=== PATIENT | male | born 1965 | race Two or more races ===

== ENCOUNTER 2016-08-23 18:05 | Emergency (ER) | payer SELFPAY ==
--- NOTE | 2016-08-23 18:28 | EDPHY ---
H & P Time Seen by Provider: 08/23/16 18:24 HPI/ROS: CHIEF COMPLAINT: Chest pain, vomiting. HISTORY OF PRESENT ILLNESS: This is a 50-year-old male with a history of diabetes, MD, and pacemaker presenting via EMS for 6/10 chest pain, abdominal pain, and vomiting. The chest pain began 3 days ago and was followed by the abdominal pain and vomiting. The chest pain radiates from his jaw to his lower chest and is worsened with exertion. He has associated rapid palpitations. He reports vomiting a black substance and gets dizzy when he moves. He has been unable to eat or drink since onset. He has also been unable to take his Lisinopril, Toprol, or insulin medications. In the ambulance his blood glucose was measured in the 500s. He admits diarrhea and palpitations yesterday but not today. He reports no history of DKA. No fever, abdominal pain, chills, shortness of breath, palpitations, urinary complaints, headache, lightheadedness. Per EMS he was found at the [facility] seeking a doctor who could refill his medications and security there alerted EMS. History obtained via [place] computer language coder at bedside. EMS administered .4mg Nitroglycerin and 324mg PO aspirin en route. REVIEW OF SYSTEMS: Aside from elements discussed in the HPI, a comprehensive 10-point review of systems was reviewed and is negative. PAST MEDICAL HISTORY: Diabetes, neuropathy, primary hypertension, hypothyroidism , chronic viral hepatitis, heart attack with Pacemaker Placement. SOCIAL HISTORY: Recently moved to [place]. VITAL SIGNS: Reviewed by me GENERAL: Well-developed, well-nourished, resting comfortably in no respiratory distress. HEENT: Atraumatic. Eyes: Mild icterus, no injection. Mouth: No ketones on the breath. Moist mucous membranes. No erythema or lesions. Neck: supple with no adenopathy. LUNGS: Clear to auscultation bilaterally, no wheezes, rhonchi or rales. CARDIAC: Pacemaker. Regular rate and rhythm, no rubs, murmurs or gallops. ABDOMEN: Soft, nontender, nondistended, bowel sounds normal. BACK: No CVA tenderness. EXTREMITIES: No trauma. No edema. Range of motion is normal throughout. NEURO: Alert and oriented, grossly nonfocal. SKIN: Warm and dry, no rash. PSYCHIATRIC: Normal mentation, no agitation. Portions of this note were transcribed by a electromedical equipment repairer. I personally performed a history, physical exam, medical decision making, and confirmed accuracy of information the transcribed note. Source: Patient Exam Limitations: No limitations - Medical/Surgical History Hx Asthma: No Hx Chronic Respiratory Disease: No Hx Diabetes: Yes Hx Cardiac Disease: Yes Hx Renal Disease: No Hx Cirrhosis: No Hx Alcoholism: No Hx Splenectomy or Spleen Trauma: No Other PMH: DMI, MD, Pacemaker - Social History Smoking Status: Former smoker Constitutional: Initial Vital Signs Temperature (C) 36.5 C 08/23/16 18:27 Heart Rate 92 08/23/16 18:27 Respiratory Rate 20 08/23/16 18:27 Blood Pressure 115/70 08/23/16 18: O2 Sat (%) 98 08/23/16 18:27 O2 Delivery Mode Nasal Cannula O2 (L/minute) 3 Allergies/Adverse Reactions: No Known Allergies Allergy (Unverified 03/28/16 03:55) Home Medications: Medication Instructions Recorded Aspirin 03/28/16 Gabapentin [Neurontin] 600 mg PO TID #30 tablet 03/28/16 Insulin 03/28/16 Metoprolol Tartrate 03/28/16 Medical Decision Making - Diagnostics EKG Interpretation: 12-LEAD EKG: Please see the full report in [employer] [facility]. My interpretation: Sinus rhythm rate 91, peaked T waves. No acute ischemic changes Imaging: X-ray of the chest was obtained. I viewed the images myself on the PACS system. The radiologist interpretation is 1. Pacemaker, without pneumothorax. 2. No acute pulmonary disease. I discussed the x-ray findings with the patient. ED Course/Re-evaluation: An IV was established and labs ordered. Chest x-ray and EKG ordered. Patient hyperglycemic at 707, hyponatremic at 120, hyperkalemic at 6.2. Patient received insulin 10 mg IV, calcium gluconate 10 ml, and Kayexalate. Patient has no acidosis on his labs. His bicarbonate is 24. Due to the lack of inpatient beds in the hospital, patient was transferred to [facility]. At the time of transfer the patient had been treated for hyperkalemia, had received 2 L of normal saline, had received insulin 10 units, and had a repeat I -STAT. Patient does have a low H&H at 9.9 and 29. Stool is heme-positive but not melanotic. Patient's course was discussed with Dr. Anton; patient will be admitted to telemetry bed. Differential Diagnosis: Differential diagnoses for the patient's symptom complex was considered including but not limited to diabetic ketoacidosis, hyperglycemia, myocardial ischemia, acute coronary syndrome, indigestion, GERD, medical noncompliance, hypertension, hyperkalemia. - Data Points Laboratory Results: Laboratory Results 08/23/16 18:15 08/23/16 18:15 08/23/16 08/23/16 08/23/16 19:50 19:18 18:15 WBC 6.48 10^3/uL (3.80-9.50) RBC 3.05 L 10^6/uL (4.40-6.38) Hgb 9.3 L g/dL (13.7-17.5) POC Hgb 9.9 L gm/dL (14.5-17.3) Hct 26.2 L % (40.0-51.0) POC Hct 29 L % (42.8-50.6) MCV 85.9 fL (81.5-99.8) MCH 30.5 pg (27.9-34.1) MCHC 35.5 g/dL (32.4-36.7) RDW 12.5 % (11.5-15.2) Plt Count 351 10^3/uL (150-400) MPV 9.6 fL (8.7-11.7) Neut % (Auto) 55.4 % (39.3-74.2) Lymph % (Auto) 33.0 % (15.0-45.0) [place] % (Auto) 8.2 % (4.5-13.0) Eos % (Auto) 1.9 % (0.6-7.6) Baso % (Auto) 1.2 % (0.3-1.7) Nucleat RBC Rel Count 0.0 % (0.0-0.2) Absolute Neuts (auto) 3.59 10^3/uL (1.70-6.50) Absolute Lymphs (auto) 2.14 10^3/uL (1.00-3.00) Absolute Monos (auto) 0.53 10^3/uL (0.30-0.80) Absolute Eos (auto) 0.12 10^3/uL (0.03-0.40) Absolute Basos (auto) 0.08 10^3/uL (0.02-0.10) Absolute Nucleated RBC 0.00 10^3/uL (0-0.01) Immature Gran % 0.3 % (0.0-1.1) Immature Gran # 0.02 10^3/uL (0.00-0.10) POC Sodium 123 L mEq/L (134-144) Sodium 120 L mEq/L (134-144) POC Potassium 6.1 H mEq/L (3.3-5.0) Potassium 6.2 H mEq/L (3.5-5.2) POC Chloride 91 L mEq/L (96-108) Chloride 83 L mEq/L (97-110) Carbon Dioxide 24 mEq/l (22-31) Anion Gap 13 mEq/L (8-16) POC BUN 70 H mg/dL (7-23) BUN 75 H mg/dL (7-23) Creatinine 2.1 H mg/dL (0.7-1.3) POC Creatinine 2.0 H mg/dL (0.8-1.5) Estimated GFR 34 Glucose 707 H* mg/dL (70-100) POC Glucose 633 H* mg/dL (70-100) Calcium 8.5 mg/dL (8.5-10.4) Total Bilirubin 0.3 mg/dL (0.1-1.4) Conjugated Bilirubin 0.2 mg/dL (0.0-0.5) Unconjugated Bilirubin 0.1 mg/dL (0.0-1.1) AST 28 IU/L (17-59) ALT 52 IU/L (21-72) Alkaline Phosphatase 122 IU/L (38-126) Troponin I < 0.012 ng/mL (0-0.034) Total Protein 6.2 L g/dL (6.3-8.2) Albumin 3.4 L g/dL (3.5-5.0) Lipase 18.0 L IU/L (23-300) Stool Occult Bld Scrn POSITIVE H (NEGATIVE) Medications Given: Discontinued Medications Calcium Gluconate (Calcium Gluconate) 1 gm IVP EDNOW ONE Stop: 08/23/16 18:55 Last Admin: 08/23/16 19:35 Dose: 1 gm Dextrose (Dextrose 50% Syringe) 25 gm IVP EDNOW ONE Stop: 08/23/16 18:55 Last Admin: 08/23/16 19:25 Dose: 25 gm Insulin Human Regular 10 unit/Miscellaneous Medication 1 ea / Dextrose 500.1 mls @ 50 mls/hr IV EDNOW ONE Stop: 08/24/16 04:54 Last Admin: 08/23/16 20:02 Dose: Not Given Sodium Chloride (Ns) 1,000 mls @ 0 mls/hr IV ONCE ONE PRN Reason: Wide Open Stop: 08/23/16 20:15 Last Admin: 08/23/16 20:15 Dose: 1,000 mls Insulin Human Regular (Humulin R) 10 unit IVP EDNOW ONE Stop: 08/23/16 18:55 Last Admin: 08/23/16 19:20 Dose: 10 units Nitroglycerin (Nitrostat) 0.4 mg SL EDNOW ONE Stop: 08/23/16 19:10 Last Admin: 08/23/16 19:10 Dose: 0.4 mg Sodium Polystyrene Sulfonate (Kayexalate) 30 gm PO EDNOW ONE Stop: 08/23/16 18:55 Last Admin: 08/23/16 19:30 Dose: 30 gm Point of Care Test Results: 08/23/16 19:18 POC Sodium 123 L POC Potassium 6.1 H POC Chloride 91 L POC BUN 70 H POC Creatinine 2.0 H POC Glucose 633 H* Departure - Departure Disposition: [facility] Not [facility] Clinical Impression: Hyperglycemia, Hyponatremia, Hyperkalemia Chest pain Qualifiers: Chest pain type: unspecified Qualifier Code: (R07.9) Chest pain, unspecified Condition: Fair Referrals: Patient,NotPresent [Unknown] - As per Instructions Report Scribed for: Fany El Report Scribed by: Mannie Strong Date of Report: 08/23/16 Time of Report: 18:43
--- NOTE | 2016-08-23 18:29 | CPEKG ---
Heart Rate: 91 RR Interval: 659 P-R Interval: 136 QRSD Interval: 100 QT Interval: 384 QTC Interval: 473 P [place]: 70 QRS [place]: 87 T Wave [place]: 70 EKG Severity - NORMAL ECG - EKG Impression: SINUS RHYTHM EKG Impression: ST ELEV, PROBABLE NORMAL EARLY REPOL PATTERN Electronically Signed By: Fany El 24-Aug-2016 00:10:59
[2016-08-23 18:40] LABS: % IMMATURE GRANULYOCYTES 0.3 % (0.0-1.1); ABSOLUTE IMMATURE GRANULOCYTES 0.02 10^3/uL (0.00-0.10); ADD DIFF? NO; ADD MORPH? NO; ADD SCAN? NO; ATYPICAL LYMPHOCYTE FLAG 10 (0-99); FRAGMENT RBC FLAG 0 (0-99); HEMATOCRIT 26.2 % (40.0-51.0); HEMOGLOBIN 9.3 g/dL (13.7-17.5); LEFT SHIFT FLG 0 (0-99); LIPEMIA HEMOLYSIS FLAG 90 (0-99); MEAN CELL HEMOGLOBIN 30.5 pg (27.9-34.1); MEAN CELL HEMOGLOBIN CONCENTR. 35.5 g/dL (32.4-36.7); MEAN CELL VOLUME 85.9 fL (81.5-99.8); MEAN PLATELET VOLUME 9.6 fL (8.7-11.7); PLATELET CLUMPS FLAG 0 (0-99); PLATELET COUNT 351 10^3/uL (150-400); RED BLOOD CELL COUNT 3.05 10^6/uL (4.40-6.38); RED CELL DISTRIBUTION WIDTH 12.5 % (11.5-15.2)
[2016-08-23] MEDS ORDERED: NITROGLYCERIN 0.4 MG BTL SL ONE ×2 (18:48→19:09)
[2016-08-23 18:52] LABS: ANION GAP 13 mEq/L (8-16); CALCIUM 8.5 mg/dL (8.5-10.4); CARBON DIOXIDE 24 mEq/l (22-31); CHLORIDE 83 mEq/L (97-110); CREATININE 2.1 mg/dL (0.7-1.3); GLOMERULAR FILTRATION RATE 34; POTASSIUM 6.2 mEq/L (3.5-5.2); SODIUM 120 mEq/L (134-144)
[2016-08-23] MEDS ORDERED: SODIUM POLY SULF 15 GM/60 ML BOTTLE PO ONE (18:54)
[2016-08-23] MEDS ORDERED: CALCIUM GLUC 10% 1 GM/10 ML VIAL IVP ONE (18:54)
[2016-08-23] MEDS ORDERED: INSULIN REGULAR HUMAN 100 UNIT/ML IVP ONE (18:54)
[2016-08-23] MEDS ORDERED: INSULIN REGULAR HUMAN 10 UNIT, COSIGN. REQUIRED 1 EA in D10W 500 ML IV ONE (18:54)
[2016-08-23] MEDS ORDERED: D50W 25 GM/50 ML SYR IVP ONE (18:54)
[2016-08-23 19:03] LABS: TROPONIN I < 0.012 ng/mL (0-0.034)
[2016-08-23 19:10] LABS: GLUCOSE 707 mg/dL (70-100)
--- NOTE | 2016-08-23 19:21 | DX ---
Chest, Two Views August 23, 2016 at 1843 hours History: Chest pain. Comparison: None. Findings: Cardiac silhouette is within normal range. No pneumonia, congestive heart failure, pleura l effusion, or pneumothorax. Left chest wall unipolar AICD pacemaker, with the leads in the right ve ntricle region. No pneumothorax. Impressions 1. Pacemaker, without pneumothorax. 2. No acute pulmonary disease.
[2016-08-23 20:01] LABS: ALBUMIN 3.4 g/dL (3.5-5.0); BILIRUBIN,TOTAL 0.3 mg/dL (0.1-1.4); BILIRUBIN-CONJUGATED 0.2 mg/dL (0.0-0.5); BILIRUBIN-UNCONJUGATED 0.1 mg/dL (0.0-1.1); TOTAL PROTEIN 6.2 g/dL (6.3-8.2)
[2016-08-23] MEDS ORDERED: NS 1,000 ML IV ONE (20:14)
[2016-08-23 21:21] VITALS: BP 142/92; PULSE 87; RESP 24; TEMP 98.1; O2SAT 100
== END 2016-08-23 21:39 | disposition short-term general hospital (02) ==
LOC: EDUNIT#
DX: R07.9 Chest pain, unspecified (principal); E11.65 Type 2 diabetes mellitus with hyperglycemia; E87.1 Hypo-osmolality and hyponatremia; E87.5 Hyperkalemia; I25.2 Old myocardial infarction; I10 Essential (primary) hypertension; Z79.4 Long term (current) use of insulin; Z79.82 Long term (current) use of aspirin; Z87.891 Personal history of nicotine dependence; Z95.0 Presence of cardiac pacemaker
CPT/HCPCS: 82947-QW; 96374; J0610; J1815